=== PATIENT | male | born 1975 | race Two or more races ===

== ENCOUNTER 2020-12-15 12:51 | Emergency (ER) | payer MEDICAID ==
[~2020-12-15] VITALS: Ht 175.3 cm; Wt 113.6 kg
[2020-12-15 12:53] VITALS: BP 106/79
[2020-12-15] MEDS ORDERED: CHOLESTEROL PO (12:57)
[2020-12-15] MEDS ORDERED: OLAN10TA74 PO (12:57)
== END 2020-12-15 13:32 | disposition home or self-care (01) ==
LOC: EMS 12:51
DX: J02.9 Acute pharyngitis, unspecified (principal); F31.9 Bipolar disorder, unspecified; F20.9 Schizophrenia, unspecified; E78.00 Pure hypercholesterolemia, unspecified; F17.210 Nicotine dependence, cigarettes, uncomplicated; Z20.822 Contact with and (suspected) exposure to COVID-19
CPT/HCPCS: 99283; 99406; U0003